=== PATIENT | male | born 1990 | race Caucasian/White ===

== ENCOUNTER → 2016-08-05 | Outpatient (CLI) | payer BC, OTHER | LOC: KOH-I 13:51 | DX: M79.672 Pain in left foot (principal); M25.572 Pain in left ankle and joints of left foot; S92.355A Nondisplaced fracture of fifth metatarsal bone, left foot, initial encounter for closed fracture | CPT/HCPCS: 73630 ==

== ENCOUNTER 2016-10-14 17:36 | Emergency (ER) | payer BC | END 2016-10-14 22:35 | disposition home or self-care (01) | LOC: ER1 17:36 | DX: S16.1XXA Strain of muscle, fascia and tendon at neck level, initial encounter (principal); F32.9 Major depressive disorder, single episode, unspecified; F17.210 Nicotine dependence, cigarettes, uncomplicated; Z79.899 Other long term (current) drug therapy; V43.62XA Car passenger injured in collision with other type car in traffic accident, initial encounter; Y92.410 Unspecified street and highway as the place of occurrence of the external cause | CPT/HCPCS: 70450; 72125; 99284 ==